=== PATIENT | male | born 1965 ===

== ENCOUNTER 2019-01-06 20:32 | Emergency (ER) | payer SELFPAY ==
[2019-01-06 20:32] VITALS: BMI 24.7
[2019-01-06 20:42] VITALS: BP 140/90; PULSE 101; RESP 14; TEMP 97.3; O2SAT 99
== END 2019-01-06 20:36 | disposition left against medical advice (07) ==
LOC: C.ER 20:32
DX: Z02.89 Encounter for other administrative examinations (principal); R19.7 Diarrhea, unspecified